=== PATIENT | female | born 1960 | race Caucasian/White ===

== ENCOUNTER 2017-08-20 11:06 | Emergency (ER) | payer BC ==
[~2017-08-20] VITALS: Ht 167.6 cm; Wt 66.2 kg
[2017-08-20 11:10] VITALS: BP_SYST 129
[2017-08-20 11:45] LABS: BILIRUBIN,URINE 1+ (NEGATIVE); BLOOD, URINE 3+ (NEGATIVE); CLARITY/URINE HAZY (CLEAR); COLOR,URINE RED (YELLOW); GLUCOSE,URINE NEGATIVE (NEGATIVE); KETONES,URINE NEGATIVE (NEGATIVE); LEUKOCYTE ESTERASE ,URINE 2+ (NEGATIVE); NITRITE, URINE POSITIVE (NEGATIVE); PROTEIN URINE 2+ (NEGATIVE); UROBILINOGEN,URINE 0.2 (0.2-1.0)
[2017-08-20 12:07] LABS: BACTERIA,URINE FEW /HPF (None Seen); MUCUS,URINE None Seen /LPF (None Seen); RBC,URINE >100 /HPF (0-3); WBC,URINE 0-3 /HPF (0-3)
[2017-08-20 12:09] VITALS: BP_SYST 127
== END 2017-08-20 12:09 | disposition home or self-care (01) ==
LOC: SED 11:06
DX: N30.91 Cystitis, unspecified with hematuria (principal)
CPT/HCPCS: 81000-TC; 99283